=== PATIENT | male | born 1995 | race Two or more races ===

== ENCOUNTER 2024-06-26 17:11 | Inpatient (IN) | payer MEDICAID, OTHER ==
[~2024-06-26] VITALS: Ht 170.2 cm; Wt 64.3 kg
--- NOTE | 2024-06-26 17:51 | DVH ---
CHEST RADIOGRAPH Indication: weak Technique: Single frontal view of the chest was obtained Comparison: None FINDINGS: Lines and Tubes: None Lungs: No focal consolidation. Pleura: No effusion. No pneumothorax. Cardiomediastinal contours: Unremarkable Bones: No acute osseous abnormality. IMPRESSION: 1. No acute cardiopulmonary disease.
--- NOTE | 2024-06-26 18:10 | ED.PDOC ---
History of Present Illness HPI Comments HPI: Poor Historian. History obtained from both the mother and the patient. Onset of symptoms last night. 28-year-old male presents to the emergency department for evaluation of bilat eral feet redness and cold with decreased capillary refill however his pedal pulses are very easily palpable. Denies any pain in his legs. Patient complains of generalized overall body ache/tingling sensation. Patient has some chills. Patient has increased urinary frequency. Denies any other acute symptoms. Patient does not take any medications. Past Medcial History: Cerebral palsy, autism, Past Surgical History: Baclofen pump removal, knee surgery, back surgery, foot bursitis surgery. REVIEW OF SYSTEMS: CONSTITUTIONAL: Denies acute: fever, diaphoresis, HEAD: Denies acute: headache, photophobia Eyes: Denies acute: Double vision, vision loss, eye pain, eye discharge. EARS: Denies acute: tinnitus, hearing loss, ear discharge, ear pain, THROAT: Denies acute: sore throat, swelling, difficulty swallowing , pain with swallowing, change in voice. NECK: Denies acute: neck pain, neck swelling, stiff neck. HEART: Denies acute : chest pain, palpitations, LUNGS: Denies acute: SOB, wheezing, cough, hemoptysis ABDOMEN: Denies acute: abdominal pain, Nausea, Vomiting, diarrhea, melena , hematemesis, hematochezia SKIN: Denies acute: lesions, itchiness. EXTREMITIES: Denies acute: calf pain, numbness, tingling, weakness, denies pain in extremity. Denies acute: Low back pain. Neuro: Denies acute: focal neurological deficit, motor or sensory focal neurological deficit, tremors, seizure like activity, confusion, dizziness, change in mental status, loss of bowel or bladder function, cauda equina like symptoms. : Denies acute: dysuria, hematuria, flank pain, PSYCH: Denies acute: hallucination, suicidal ideation, homicidal ideation. PHYSICAL EXAM: General: no acute distress, awake and alert. Head: normocephalic, atraumatic. Neck: supple, trachea is midline, no swelling. Throat: Normal phonation. Eyes:, no erythema, no purulent discharge, no proptosis, no icterus. Heart: regular rate, regular rhythm, no significant murmur appreciated. Lungs: no apparent respiratory distress, Able to speak in full sentences. No wheezing, no rhonchi, no crackles. No stridors Clear to auscultation bilaterally. Abdomen: non tender to palpation, non distended, soft, no guarding, no rebound, + bowel sounds. Neuro: Awake, Alert, oriented to name, self, situation, follows commands GCS=15. Speech is normal. Skin: no petechia, no purpura, no cyanosis, non-pale, not jaundice. noted some redness of the lower distal extremities. no vesicles, non dermatomal, non elevated, Lower extremities: --no - Pitting edema no deformity, no focal swelling, no calf TTP. Bilateral pedal pulses are palpable. There is noted decreased capillary refills in bilateral feet. They are red in color and cold to touch but no pain. Makes eye contact. moves all four extremities. Face: no apparent facial droop. Wheelchair-bound. Pedal pulses are palpable. Chief Complaint: Rash Time Seen by MD: 17:28 Primary Care Provider: [facility] Reviewed Notes: Nurses Notes, Allergies Allergies: Coded Allergies: NO KNOWN ALLERGIES (Unverified , 06/26/24) Home Meds Reported Medications Quetiapine Fumerate (Seroquel) 50 Mg Tab, 50 MG PO for 30 Days, MG 06/27/24 Baclofen (Baclofen) 10 Mg Tab, 20 MG PO Q8HP PRN for Muscle Spasms for 30 Days, MG 06/27/24 Information Source: Patient, Relative (Mother) Mode of Arrival: Wheelchair Was a procedure done? Was a procedure done?: No Differential Dx Considerations may include: rash, allergic rxn, sepsis, PVD, PAD, occlusion, ischemic limb. viral etiology. DVT. X-Ray, Labs, Meds, VS Vital Signs Date Time Temp Pulse Resp B/P (MAP) Pulse Ox O2 Delivery O2 Flow Rate FiO2 06/27/24 00:00 59 06/27/24 00:00 55 18 121/62 (81) 95 06/27/24 00:00 56 21 126/55 (78) 96 06/26/24 23:00 73 10 127/69 (88) 96 06/26/24 22:45 57 17 95 Room Air* 0 21 06/26/24 22:45 98.5 57 17 124/74 (91) 98 98.5 06/26/24 20:28 78 16 98 Room Air 06/26/24 20:02 98.5 78 16 96/66 (76) 98 98.5 06/26/24 17:22 99.8 66 18 133/88 (103) 99 Lab Test 06/26/24 21:52 06/26/24 17:54 06/26/24 17:21 Range/Units Erythrocyte Sedimentation Rate 2 0-20 mm/hr Prothrombin Time 11.7 9.3-11.8 sec Prothrombin Time INR 1.12 0.9-1.15 Activated Partial Thromboplast Time 31.3 24.5-34.5 SEC B-Type Natriuretic Peptide 1.68 0-100 pg/mL White Blood Count 7.1 4.4-10.8 10^3/uL Red Blood Count 5.08 4.5-5.90 10^6/uL Hemoglobin 16.0 13.5-17.5 g/dL Hematocrit 47.5 41.0-53.0 % Mean Corpuscular Volume 93.5 80.0-100.0 fL Mean Corpuscular Hemoglobin 31.5 28.0-32.0 pg Mean Corpuscular Hemoglobin Concent 33.7 32.0-36.0 g/dL Red Cell Distribution Width 12.2 11.8-14.3 % Platelet Count 292 140-450 10^3/uL Mean Platelet Volume 7.9 6.9-10.8 fL Neutrophils (%) (Auto) 58.8 37.0-80.0 % Lymphocytes (%) (Auto) 30.5 10.0-50.0 % Monocytes (%) (Auto) 9.5 0.0-12.0 % Eosinophils (%) (Auto) 0.8 0.0-7.0 % Basophils (%) (Auto) 0.4 0.0-2.0 % Neutrophils # (Auto) 4.2 1.6-8.6 10 ^3/uL Lymphocytes # (Auto) 2.2 0.4-5.4 10 ^3/uL Monocytes # (Auto) 0.7 0-1.3 10 ^3/uL Eosinophils # (Auto) 0.1 0-0.8 10 ^3/uL Basophils # (Auto) 0 0-0.2 10 ^3/uL Nucleated Red Blood Cells 0.0 % Sodium Level 139 136-145 mmol/L Potassium Level 4.1 3.5-5.1 mmol/L Chloride Level 106 98-107 mmol/L Carbon Dioxide Level 27 20-31 mmol/L Anion Gap 6 5-15 Blood Urea Nitrogen 13 9-23 mg/dL Creatinine 1.02 0.700-1.30 mg/dL Glomerular Filtration Rate Calc 104 >90 mL/min BUN/Creatinine Ratio 12.7 10.0-20.0 Serum Glucose 96 74-106 mg/dL Lactic Acid Level 1.1 0.4-2.0 mmol/L Calcium Level 10.7 H 8.7-10.4 mg/dL Total Bilirubin 0.7 0.2-1.0 mg/dL Aspartate Amino Transferase (AST) 15 13-40 U/L Alanine Aminotransferase (ALT) 21 7-40 U/L Alkaline Phosphatase 66 46-116 U/L Creatine Kinase 188 H 46-171 U/L C-Reactive Protein High Sensitivity 0.02 <1.0 mg/dL Total Protein 7.6 5.7-8.2 g/dL Albumin 5.0 H 3.2-4.8 g/dL Urine Color Yellow Yellow Urine Clarity Clear Clear Urine pH 7.5 5.0-9.0 Urine Specific [place] 1.028 1.001-1.035 Urine Protein 2+ H Negative Urine Ketones Negative Negative Urine Blood Negative Negative /uL Urine Nitrite Negative Negative Urine Bilirubin Negative Negative Urine Urobilinogen 2 H Negative mg/dL Urine Leukocyte Esterase Negative Negative /uL Urine RBC 6 0 - 3 /hpf Urine WBC 2 0 - 3 /hpf Urine Squamous Epithelial Cells None seen <5 /hpf Urine Bacteria Few H None Seen /hpf Urine Mucus Few None Seen Urine Sperm Present None Seen /hpf Urine Glucose Normal Normal mg/dL Urine Opiates Screen Neg NEGATIVE Urine Fentanyl Screen Neg NEGATIVE Urine Barbiturates Screen Neg NEGATIVE Urine Phencyclidine Screen Neg NEGATIVE Urine Amphetamines Screen Neg NEGATIVE Urine Benzodiazepines Screen Neg NEGATIVE Urine Cocaine Screen Neg NEGATIVE Urine Cannabinoids Screen Pos NEGATIVE Microbiology Date/Time Source Procedure Growth Status 06/26/24 17:54 Blood Blood Culture - Final NO GROWTH AFTER 5 DAYS OF INCUBATION. Complete 06/26/24 17:35 Blood Blood Culture - Final NO GROWTH AFTER 5 DAYS OF INCUBATION. Complete 06/26/24 17:21 Voided Urine Urine Culture - Final Enterococcus faecalis Complete [facility] [address] [facility] [address] Ph: [phone] DIAGNOSTIC IMAGING Diagnostic Imaging Report : [id number] Signed PATIENT: SHARON XIE ACCT: [id number] UNIT: [id number] : 1995 LOC: ER ROOM / BED: / AGE / SEX: 28 / M ADM STATUS: REG ER SERVICE 03 ORDERING PHYSICIAN: SARAH CHACKO DO PROCEDURE(s): BLEAD - BiLat Low Ext Art Duplex REASON: cold feet b/l ORDER NUMBER(s): [id number], ACCESSION NUMBER(s): [id number] BILATERAL Lower Extremity Arterial Duplex Date: 06/26/2024 07:13 PM Clinical History: cold feet b/l Comparison: None Technique: Duplex Doppler evaluation including color Doppler and spectral/pulsed waveform analysis of the lower extremity arteries was performed. Finding: RIGHT: Peak systolic velocities are as follows: OBIEE OBIA SOLUTION ARCHITECT 154 cm/s Deep femoral 131 cm/s SFA proximal 99 cm/s SFA mid-portion 97 cm/s SFA distal 75 cm/s Popliteal 73 cm/s Posterior tibial 44 cm/s Dorsalis pedis 29 cm/s The waveforms are triphasic with diastolic flow. LEFT: Peak systolic velocities are as follows: OBIEE OBIA SOLUTION ARCHITECT 125 cm/s Deep femoral 82 cm/s SFA proximal 81 cm/s SFA mid-portion 98 cm/s SFA distal 89 cm/s Popliteal 68 cm/s Posterior tibial 35 cm/s Dorsalis pedis 37 cm/s The waveforms are triphasic with diastolic flow. IMPRESSION: No hemodynamically significant stenosis involving the bilateral lower extremity arteries. REFERENCE VALUES, [facility]) vascular Imaging Lab Criteria: Peak systolic velocity ranges (in cm/sec) are as follows: <150 cm/s - <20 % stenosis 150-200 cm/s - 20-49% stenosis 200-300 cm/s - 50-75% stenosis >300 cm/s -> 75% stenosis ATED BY: ARIN FLORES DO DICTATED DATE/TIME: 06/26/241949 SIGNED BY: ARIN FLORES DO SIGNED DATE/TIME: 06/26/241949 CC: [address] [address] Ph: [phone] DIAGNOSTIC IMAGING Diagnostic Imaging Report : [id number] Signed PATIENT: SHARON XIE ACCT: [id number] UNIT: [id number] : 1995 LOC: ER ROOM / BED: / AGE / SEX: 28 / M ADM STATUS: REG ER SERVICE 28 ORDERING PHYSICIAN: SARAH CHACKO DO PROCEDURE(s): CXRP - CHEST PORTABLE REASON: weak ORDER NUMBER(s): [id number], ACCESSION NUMBER(s): [id number] CHEST RADIOGRAPH Indication: weak Technique: Single frontal view of the chest was obtained Comparison: None FINDINGS: Lines and Tubes: None Lungs: No focal consolidation. Pleura: No effusion. No pneumothorax. Cardiomediastinal contours: Unremarkable Bones: No acute osseous abnormality. IMPRESSION: 1. No acute cardiopulmonary disease. ATED BY: NANCY ALEXANDER Jr., DO DICTATED DATE/TIME: 06/26/241747 SIGNED BY: NANCY ALEXANDER Jr., SIGNED DATE/TIME: 06/26/241747 CC: Time of 1ST Reevaluation: 00:00 Reevaluation 1ST: N/A Patient Education/Counseling: Diagnosis, Treatment Family Education/Counseling: Diagnosis, Treatment Comments Patient presented with the above HPI. bilateral lower extremity erythema workup was initiated. patient was found with the above mentioned diagnosis. the following medications were ordered: ceftriaxone, IV fluids the following tests were ordered: EKG, CXR, BILAT Lower Extremity US, BNP, CMP, CBC, blood culture, C-reactive protein, erythrocyte sedimentary, lactic acid, urinalysis, creatine kinase, prothrombin time, PTPTT Patient ED course and VS have been stabilized. Patient has been reassessed in the ED and remained in a stable condition. Pertinent incidental findings were discussed with the patient and/or family. Patient/family voices understanding and is agreeable with plan. Patient has been observed in the ED adequate length of time to insure improvement/stability. Escalation of care considered: Consideration of escalation to observation or admission Patient was ADMITTED to the medicine team for further evaluation and treatment of their presentation. All the reports of any imaging studies that were ordered by myself were reviewed by myself. Departure 1 Departure Time of Disposition: 23:17 Impression: Primary Impression: UTI (urinary tract infection) Additional Impressions: Rash Cold extremities Disposition: ADMITTED INPATIENT Admit to: Tele Condition: Stable Discharged With: Self, Relative (Mother) Critical Care Note Critical Care Time?: No I personally scribed for SARAH CHACKO DO ([email or web address]) on 06/26/24 at 20:57. Electronically submitted by Alessandro Bee ([email or web address]). I personally scribed for SARAH CHACKO DO ([email or web address]) on 06/26/24 at 22:24. Electronically submitted by Alessandro Bee ([email or web address]). I personally scribed for SARAH CHACKO DO ([email or web address]) on 06/27/24 at 01:41. Electronically submitted by Alessandro Bee ([email or web address]). SARAH CHACKO DO Jun 26, 2024 18:10
[2024-06-26 18:25] LABS: Basophils # (auto) 0 10 ^3/uL (0-0.2); Basophils % (auto) 0.4 % (0.0-2.0); Eosinophils # (auto) 0.1 10 ^3/uL (0-0.8); Eosinophils % (auto) 0.8 % (0.0-7.0); Hematocrit 47.5 % (41.0-53.0); Lymphocytes # (auto) 2.2 10 ^3/uL (0.4-5.4); Lymphocytes % (auto) 30.5 % (10.0-50.0); Mean Corpuscular Hemoglobin 31.5 pg (28.0-32.0); Mean Corpuscular Hgb Conc. 33.7 g/dL (32.0-36.0); Mean Corpuscular Volume 93.5 fL (80.0-100.0); Monocytes # (auto) 0.7 10 ^3/uL (0-1.3); Monocytes % (auto) 9.5 % (0.0-12.0); Neutrophils # (auto) 4.2 10 ^3/uL (1.6-8.6); Neutrophils % (auto) 58.8 % (37.0-80.0); Platelet Count (auto) 292 10^3/uL (140-450); Red Blood Cells 5.08 10^6/uL (4.5-5.90); Red Cell Distribution Width 12.2 % (11.8-14.3); White Blood Cell 7.1 10^3/uL (4.4-10.8)
[2024-06-26 18:31] LABS: Alanine Aminotransferase 21 U/L (7-40); Alkaline Phosphatase 66 U/L (46-116); Anion Gap 6 (5-15); Aspartate Aminotransferase 15 U/L (13-40); BUN/Creatinine Ratio 12.7 (10.0-20.0); Bilirubin, Total 0.7 mg/dL (0.2-1.0); Blood Urea Nitrogen 13 mg/dL (9-23); CRP High Sensitivity 0.02 mg/dL (<1.0); Carbon Dioxide 27 mmol/L (20-31); Chloride 106 mmol/L (98-107); Glucose 96 mg/dL (74-106); Potassium 4.1 mmol/L (3.5-5.1); Sodium 139 mmol/L (136-145); Total Protein 7.6 g/dL (5.7-8.2)
[2024-06-26 18:56] LABS: Calcium 10.7 mg/dL (8.7-10.4); Creatine Kinase IFCC 188 U/L (46-171)
[2024-06-26 19:13] LABS: Urine Bacteria FEW /hpf (None Seen); Urine Blood Negative /uL (Negative); Urine Clarity Clear (Clear); Urine Color Yellow (Yellow); Urine Mucus FEW (None Seen); Urine Protein, UAD 2+ (Negative); Urine Specific Gravity 1.028 (1.001-1.035); Urine Sperm PRESENT /hpf (None Seen); Urine Squamous Epithelial Cell None Seen /hpf (<5); Urine Urobilinogen 2 mg/dL (Negative); Urine WBC 2 /hpf (0 - 3); Urine pH 7.5 (5.0-9.0)
--- NOTE | 2024-06-26 19:53 | DVH ---
BILATERAL Lower Extremity Arterial Duplex Date: 06/26/2024 07:13 PM Clinical History: cold feet b/l Comparison: None Technique: Duplex Doppler evaluation including color Doppler and spectral/pulsed waveform analysis of the lower extremity arteries was performed. Finding: RIGHT: Peak systolic velocities are as follows: DUPLICATING MACHINE OPERATOR 154 cm/s Deep femoral 131 cm/s SFA proximal 99 cm/s SFA mid-portion 97 cm/s SFA distal 75 cm/s Popliteal 73 cm/s Posterior tibial 44 cm/s Dorsalis pedis 29 cm/s The waveforms are triphasic with diastolic flow. LEFT: Peak systolic velocities are as follows: DUPLICATING MACHINE OPERATOR 125 cm/s Deep femoral 82 cm/s SFA proximal 81 cm/s SFA mid-portion 98 cm/s SFA distal 89 cm/s Popliteal 68 cm/s Posterior tibial 35 cm/s Dorsalis pedis 37 cm/s The waveforms are triphasic with diastolic flow. IMPRESSION: No hemodynamically significant stenosis involving the bilateral lower extremity arteries. REFERENCE VALUES, [facility]) vascular Imaging Lab Criteria: Peak systolic velocity ranges (in cm/sec) are as follows: <150 cm/s - <20 % stenosis 150-200 cm/s - 20-49% stenosis 200-300 cm/s - 50-75% stenosis >300 cm/s -> 75% stenosis
[2024-06-26] MEDS: SODIUM CHLORIDE 0.9% 1,000 ML IV ONE (20:21)
[2024-06-26] MEDS: cefTRIAXone 1GM/50ML D5W 50 ML IV ONE (20:29)
[2024-06-26 22:27] LABS: INR 1.12 (0.9-1.15); Partial Thromboplastin Time 31.3 SEC (24.5-34.5); Prothrombin Time 11.7 sec (9.3-11.8)
[2024-06-26 22:45] VITALS: PULSE 57; RESP 17; O2SAT 95
[2024-06-26 22:46] LABS: Erythrocyte Sedimentation Rate 2 mm/hr (0-20)
--- NOTE | 2024-06-27 01:51 | DVHHPRES ---
History of Present Illness Resident Creating Document: [place] [facility] RESIDENT History of Present Illness Is a 28-year-old male with past medical history of cerebral palsy spastic type, autism, who was brought in by his mother due to itchy burning pain in bilateral legs along with a maculopapular rash. According to the patient and his mom at bedside, yesterday on 06/26/2024 he started experiencing back pain, itching burning pain in bilateral lower extremity along with loss of appetite. Denies having any sick contacts, denies any history of travel. Patient remained in [facility] between the ages of 5 and 20, however, mother notes patient is likely up to date on all childhood vaccination. Past Medical History cerebral palsy spastic type, autism Past Surgical History Left knee surgery, baclofen pump removal surgery Smoke: No ALCOHOL: rare Drugs: Marijuana Lives: with Family Review of Systems Constitutional: Yes: Chills, Malaise; No: Fever, Sweats, Weakness, Other Eyes: No: Pain, Vision change, Conjunctivae inflammation, Eyelid inflammation, Other, Redness ENT: Nose discharge; No: Ear pain, Ear discharge, Nose pain, Nose congestion, Mouth pain, Mouth swelling, Throat pain, Throat swelling, Other Respiratory: Cough, Shortness of breath; No: Dry, SOB with excertion, Wheezing, Hemoptysis, Pleuritic Pain, Sputum, Wheezing, Other Cardiovascular: Palpitations; No: Chest Pain, Orthopnea, Paroxysmal Noc. Dyspnea, Edema, Lt Headedness, Other Gastrointestinal: Diarrhea; No: Nausea, Vomiting, Abdominal Pain, Constipation, Melena, Hematochezia, Other Genitourinary: Dysuria, Frequency; No Incontinence, No Hematuria, No Retention, No Other Musculoskeletal: No: other, neck pain, shoulder pain, arm pain, back pain, hand pain, leg pain, foot pain Skin: Rash (Maculopapular type rash on bilateral lower extremities); No: Lesions, Jaundice, Bruising, Other Neurological: No: Weakness, Numbness, Incoordination, Change in speech, Confusion, Seizures, Other Allergies: Coded Allergies: NO KNOWN ALLERGIES (Unverified , 06/26/24) Medications Current Medications Medications Dose Ordered Sig/Jam Route Start Time Stop Time Status Last Admin Dose Admin Ceftriaxone Sodium 50 ml @ 100 mls/hr DAILY@09 IV 06/27/24 09:00 UNV Exam Vital Signs Vital Signs Date Time Temp Pulse Resp B/P (MAP) Pulse Ox O2 Delivery O2 Flow Rate FiO2 06/27/24 00:00 59 06/27/24 00:00 18 121/62 (81) 95 06/26/24 22:45 Room Air* 0 21 06/26/24 22:45 98.5 98.5 General Appearance: Alert, Oriented X3, No acute distress HEENT: Atraumatic, PERRLA, EOMI, Mucous membr. moist/pink Respiratory: Clear to auscultation, Normal air movement Cardiovascular: Regular rate, Normal S1, Normal S2, No murmurs Abdominal: Normal bowel sounds, Soft, No tenderness Extremities: No edema, Normal pulses, Other (Bilateral lower extremity rash, erythema) Skin: No significant lesion Neuro: Normal speech, Normal tone (Increased tone in bilateral lower extremities) Psych/Mental Status: Mood NL Labs/Xrays Labs Test 06/26/24 21:52 06/26/24 17:54 06/26/24 17:21 Range/Units Erythrocyte Sedimentation Rate 2 0-20 mm/hr Prothrombin Time 11.7 9.3-11.8 sec Prothrombin Time INR 1.12 0.9-1.15 Activated Partial Thromboplast Time 31.3 24.5-34.5 SEC B-Type Natriuretic Peptide 1.68 0-100 pg/mL White Blood Count 7.1 4.4-10.8 10^3/uL Red Blood Count 5.08 4.5-5.90 10^6/uL Hemoglobin 16.0 13.5-17.5 g/dL Hematocrit 47.5 41.0-53.0 % Mean Corpuscular Volume 93.5 80.0-100.0 fL Mean Corpuscular Hemoglobin 31.5 28.0-32.0 pg Mean Corpuscular Hemoglobin Concent 33.7 32.0-36.0 g/dL Red Cell Distribution Width 12.2 11.8-14.3 % Platelet Count 292 140-450 10^3/uL Mean Platelet Volume 7.9 6.9-10.8 fL Neutrophils (%) (Auto) 58.8 37.0-80.0 % Lymphocytes (%) (Auto) 30.5 10.0-50.0 % Monocytes (%) (Auto) 9.5 0.0-12.0 % Eosinophils (%) (Auto) 0.8 0.0-7.0 % Basophils (%) (Auto) 0.4 0.0-2.0 % Neutrophils # (Auto) 4.2 1.6-8.6 10 ^3/uL Lymphocytes # (Auto) 2.2 0.4-5.4 10 ^3/uL Monocytes # (Auto) 0.7 0-1.3 10 ^3/uL Eosinophils # (Auto) 0.1 0-0.8 10 ^3/uL Basophils # (Auto) 0 0-0.2 10 ^3/uL Nucleated Red Blood Cells 0.0 % Sodium Level 139 136-145 mmol/L Potassium Level 4.1 3.5-5.1 mmol/L Chloride Level 106 98-107 mmol/L Carbon Dioxide Level 27 20-31 mmol/L Anion Gap 6 5-15 Blood Urea Nitrogen 13 9-23 mg/dL Creatinine 1.02 0.700-1.30 mg/dL Glomerular Filtration Rate Calc 104 >90 mL/min BUN/Creatinine Ratio 12.7 10.0-20.0 Serum Glucose 96 74-106 mg/dL Lactic Acid Level 1.1 0.4-2.0 mmol/L Calcium Level 10.7 H 8.7-10.4 mg/dL Total Bilirubin 0.7 0.2-1.0 mg/dL Aspartate Amino Transferase (AST) 15 13-40 U/L Alanine Aminotransferase (ALT) 21 7-40 U/L Alkaline Phosphatase 66 46-116 U/L Creatine Kinase 188 H 46-171 U/L C-Reactive Protein High Sensitivity 0.02 <1.0 mg/dL Total Protein 7.6 5.7-8.2 g/dL Albumin 5.0 H 3.2-4.8 g/dL Urine Color Yellow Yellow Urine Clarity Clear Clear Urine pH 7.5 5.0-9.0 Urine Specific [place] 1.028 1.001-1.035 Urine Protein 2+ H Negative Urine Ketones Negative Negative Urine Blood Negative Negative /uL Urine Nitrite Negative Negative Urine Bilirubin Negative Negative Urine Urobilinogen 2 H Negative mg/dL Urine Leukocyte Esterase Negative Negative /uL Urine RBC 6 0 - 3 /hpf Urine WBC 2 0 - 3 /hpf Urine Squamous Epithelial Cells None seen <5 /hpf Urine Bacteria Few H None Seen /hpf Urine Mucus Few None Seen Urine Sperm Present None Seen /hpf Urine Glucose Normal Normal mg/dL Assessment/Plan Assessment/Plan Acute complicated UTI Possible cellulitis of the lower extremities vs allergic rash - lower extremity arterial Doppler: No hemodynamically significant stenosis involving the bilateral lower extremity arteries - IV ceftriaxone - IV NS 1 L bolus - ordered urine culture History of cerebral palsy: Muscle spasticity - baclofen 10 mg p.o. once DVT prophylaxis: SCD Goals of care: Full code, discussed for >16 minutes on 06/27/2024 Plan discussed with patient Plan discussed with Dr. Kearney Plan discussed with: Patient, Other (Mother, RN) My Orders Orders - [place] [facility] RESIDENT Procedure Category Date Status Time Admit ADMIT 06/27/24 Transmitted 01:48 Notify Md Of Changes AWAIS 06/27/24 In Process From Base 01:48 Covid19 Antigen Kae LAB 06/27/24 Transmitted Rapid Influenza A&B LAB 06/27/24 Transmitted 01:48 Insert Cheung Catheter AWAIS 06/27/24 In Process 01:48 Urine Bacterial GUNNAR 06/27/24 Transmitted Culture 01:48 Ceftriaxone 1gm/50ml PHA 06/27/24 Logged D5w (Rocephin) 09:00 Ceftriaxone 1gm/50ml PHA 06/27/24 Logged D5w (Rocephin) 02:00 Baclofen Tablet PHA 06/27/24 Transmitted (Liorisal Tablet) 02:00 Date of Service: Jun 27, 2024 Billing Provider: GABBIE KEARNEY MD Common Visit Codes: [id number] INP/OBS CARE (HIGH) [place] RES[facility] Jun 27, 2024 01:51 GABBIE KEARNEY MD Jun 27, 2024 17:51
[2024-06-27] MEDS ORDERED: cefTRIAXone 1GM/50ML D5W 50 ML IV ONE (02:00)
[2024-06-27] MEDS: BACLOFEN 10 MG TAB PO ONE (02:11)
[2024-06-27 03:19] LABS: COVID19 ANTIGEN SOFIA FIA NEGATIVE (NEGATIVE); Rapid Influenza A Negative (Negative); Rapid Influenza B Negative (Negative)
[2024-06-27 03:20] LABS: Amphetamine Screen, Urine Neg (NEGATIVE); Barbiturate Scree,Urine Neg (NEGATIVE); Benzodiazephine Screen, Urine Neg (NEGATIVE); Cocaine Screen, Urine Neg (NEGATIVE)
[2024-06-27 03:21] LABS: Cannabinoid Screen, Urine Pos (NEGATIVE); Opiate Scree,Urine Neg (NEGATIVE); Phencyclidine Screen, Urine Neg (NEGATIVE)
[2024-06-27] MEDS: cefTRIAXone 1GM/50ML D5W 50 ML IV SCH (08:09)
[2024-06-27] MEDS: SODIUM CHLORIDE 0.9% 1,000 ML IV SCH (09:22)
[2024-06-27] MEDS ORDERED: ONDANSETRON HCL 4 MG/2 ML VIAL IV PRN (11:15)
[2024-06-27] MEDS ORDERED: ACETAMINOPHEN 325 MG TAB PO PRN (11:15)
[2024-06-27 15:27] VITALS: RESP 16
[2024-06-27] MEDS ORDERED: BACL10TA PO (16:05)
[2024-06-27] MEDS ORDERED: QUET50TA PO (16:08)
[2024-06-27 17:00] VITALS: BP 147/78; PULSE 69; RESP 18; TEMP 97; O2SAT 96
[2024-06-27 20:00] VITALS: PULSE 67; RESP 18; O2SAT 99
[2024-06-27 21:00] VITALS: BP 154/67; PULSE 73; RESP 18; TEMP 97.6; O2SAT 99
[2024-06-28 01:00] VITALS: BP 138/71; PULSE 67; RESP 18; TEMP 97.6; O2SAT 99
[2024-06-28] MEDS: diphenhdrAMINE HCL 25 MG CAP PO PRN (01:02)
[2024-06-28 05:00] VITALS: BP 113/65; PULSE 93; RESP 19; TEMP 97.5; O2SAT 100
[2024-06-28 05:48] LABS: Basophils # (auto) 0 10 ^3/uL (0-0.2); Basophils % (auto) 0.6 % (0.0-2.0); Eosinophils # (auto) 0.1 10 ^3/uL (0-0.8); Eosinophils % (auto) 1.9 % (0.0-7.0); Hematocrit 47.2 % (41.0-53.0); Hemoglobin 16.1 g/dL (13.5-17.5); Lymphocytes # (auto) 2.6 10 ^3/uL (0.4-5.4); Lymphocytes % (auto) 36.9 % (10.0-50.0); Mean Corpuscular Hemoglobin 32.1 pg (28.0-32.0); Mean Corpuscular Hgb Conc. 34.2 g/dL (32.0-36.0); Mean Corpuscular Volume 93.8 fL (80.0-100.0); Monocytes # (auto) 0.8 10 ^3/uL (0-1.3); Monocytes % (auto) 10.8 % (0.0-12.0); Neutrophils # (auto) 3.5 10 ^3/uL (1.6-8.6); Neutrophils % (auto) 49.8 % (37.0-80.0); Platelet Count (auto) 266 10^3/uL (140-450); Red Blood Cells 5.03 10^6/uL (4.5-5.90); Red Cell Distribution Width 12.4 % (11.8-14.3)
[2024-06-28 05:56] LABS: Alanine Aminotransferase 17 U/L (7-40); Albumin 4.6 g/dL (3.2-4.8); Alkaline Phosphatase 64 U/L (46-116); Anion Gap 5 (5-15); BUN/Creatinine Ratio 8.7 (10.0-20.0); Calcium 10.2 mg/dL (8.7-10.4); Carbon Dioxide 30 mmol/L (20-31); Chloride 104 mmol/L (98-107); Glucose 95 mg/dL (74-106); Magnesium 2.1 mg/dL (1.6-2.6); Sodium 139 mmol/L (136-145); Total Protein 7.5 g/dL (5.7-8.2)
[2024-06-28 05:57] LABS: Aspartate Aminotransferase 10 U/L (13-40); Bilirubin, Total 0.7 mg/dL (0.2-1.0); Blood Urea Nitrogen 9 mg/dL (9-23)
[2024-06-28 08:00] VITALS: PULSE 70; RESP 16; O2SAT 95
[2024-06-28 08:30] VITALS: BP 101/72; PULSE 70; RESP 16; TEMP 97.8; O2SAT 95
--- NOTE | 2024-06-28 09:54 | DVHDS2 ---
Discharge Summary Date of Admission Jun 27, 2024 at 01:48 Date of Discharge: Jun 28, 2024 Labs/Diagnostic Data: Laboratory Results Test 06/28/24 05:18 06/27/24 02:15 06/26/24 21:52 06/26/24 17:54 White Blood Count 7.0 10^3/uL (4.4-10.8) Red Blood Count 5.03 10^6/uL (4.5-5.90) Hemoglobin 16.1 g/dL (13.5-17.5) Hematocrit 47.2 % (41.0-53.0) Mean Corpuscular Volume 93.8 fL (80.0-100.0) Mean Corpuscular Hemoglobin 32.1 pg (28.0-32.0) Mean Corpuscular Hemoglobin Concent 34.2 g/dL (32.0-36.0) Red Cell Distribution Width 12.4 % (11.8-14.3) Platelet Count 266 10^3/uL (140-450) Mean Platelet Volume 7.7 fL (6.9-10.8) Neutrophils (%) (Auto) 49.8 % (37.0-80.0) Lymphocytes (%) (Auto) 36.9 % (10.0-50.0) Monocytes (%) (Auto) 10.8 % (0.0-12.0) Eosinophils (%) (Auto) 1.9 % (0.0-7.0) Basophils (%) (Auto) 0.6 % (0.0-2.0) Neutrophils # (Auto) 3.5 10 ^3/uL (1.6-8.6) Lymphocytes # (Auto) 2.6 10 ^3/uL (0.4-5.4) Monocytes # (Auto) 0.8 10 ^3/uL (0-1.3) Eosinophils # (Auto) 0.1 10 ^3/uL (0-0.8) Basophils # (Auto) 0 10 ^3/uL (0-0.2) Nucleated Red Blood Cells 0.0 % Sodium Level 139 mmol/L (136-145) Potassium Level 4.0 mmol/L (3.5-5.1) Chloride Level 104 mmol/L (98-107) Carbon Dioxide Level 30 mmol/L (20-31) Anion Gap 5 (5-15) Blood Urea Nitrogen 9 mg/dL (9-23) Creatinine 1.04 mg/dL (0.700-1.30) Glomerular Filtration Rate Calc 102 mL/min (>90) BUN/Creatinine Ratio 8.7 (10.0-20.0) Serum Glucose 95 mg/dL (74-106) Calcium Level 10.2 mg/dL (8.7-10.4) Magnesium Level 2.1 mg/dL (1.6-2.6) Total Bilirubin 0.7 mg/dL (0.2-1.0) Aspartate Amino Transferase (AST) 10 U/L (13-40) Alanine Aminotransferase (ALT) 17 U/L (7-40) Alkaline Phosphatase 64 U/L (46-116) Total Protein 7.5 g/dL (5.7-8.2) Albumin 4.6 g/dL (3.2-4.8) Influenza Type A Antigen Negative (Negative) Influenza Type B Antigen Negative (Negative) SARS-CoV-2 Antigen (Rapid) Negative (NEGATIVE) Erythrocyte Sedimentation Rate 2 mm/hr (0-20) Prothrombin Time 11.7 sec (9.3-11.8) Prothrombin Time INR 1.12 (0.9-1.15) Activated Partial Thromboplast Time 31.3 SEC (24.5-34.5) B-Type Natriuretic Peptide 1.68 pg/mL (0-100) Lactic Acid Level 1.1 mmol/L (0.4-2.0) Creatine Kinase 188 U/L (46-171) C-Reactive Protein High Sensitivity 0.02 mg/dL (<1.0) Test 06/26/24 17:21 Urine Color Yellow (Yellow) Urine Clarity Clear (Clear) Urine pH 7.5 (5.0-9.0) Urine Specific [place] 1.028 (1.001-1.035) Urine Protein 2+ (Negative) Urine Ketones Negative (Negative) Urine Blood Negative /uL (Negative) Urine Nitrite Negative (Negative) Urine Bilirubin Negative (Negative) Urine Urobilinogen 2 mg/dL (Negative) Urine Leukocyte Esterase Negative /uL (Negative) Urine RBC 6 /hpf (0 - 3) Urine WBC 2 /hpf (0 - 3) Urine Squamous Epithelial Cells None seen /hpf (<5) Urine Bacteria Few /hpf (None Seen) Urine Mucus Few (None Seen) Urine Sperm Present /hpf (None Seen) Urine Glucose Normal mg/dL (Normal) Urine Opiates Screen Neg (NEGATIVE) Urine Fentanyl Screen Neg (NEGATIVE) Urine Barbiturates Screen Neg (NEGATIVE) Urine Phencyclidine Screen Neg (NEGATIVE) Urine Amphetamines Screen Neg (NEGATIVE) Urine Benzodiazepines Screen Neg (NEGATIVE) Urine Cocaine Screen Neg (NEGATIVE) Urine Cannabinoids Screen Pos (NEGATIVE) Other Laboratory Tests 06/28/24 05:18 Brief Hx & Hospital Course: Final diagnoses: Acute allergic reaction Cerebral palsy Hospital course: 28-year-old male who was admitted for an allergic reaction and rash of his bilateral feet and ankle and knees His mother stated that he did not take any new medications or had any unusual foods He was reporting itching. No infection was suspected White count was normal UA showed no UTI Chest x-ray showed no pneumonia He was observed overnight and today the rash has resolved and he is asymptomatic and therefore he will be discharged home to take Benadryl as needed for the itching or rash and follow up with his primary care physician as soon as possible and resume his regular home medications. Condition at Discharge: Stable Final Diagnosis/Problems List Acute allergic reaction Cerebral palsy Discharge Disposition: Home SNF Discharge Will this Physician continue t: No Discharge Instruct/Medications Diet: Regular Activity: No Restrictions, As Tolerated Follow Up/Referral: PCP [facility] Medications: Benadryl OTC prn Discharge Statement: "Patient was advised to return to the ER or call 911 if any headaches, dizziness, shortness of breath, chest pain, abdominal pain, bleeding, fevers, or worsening of medical condition. Patient was counseled about treatment plan, medications, possible side effects, patientverbalized understanding. All questions were answered to the best of my ability. This discharge took greater then 30 minutes in planning, reviewing documentation, counseling the patient, and discussing with other team members." ASSESSMENT ASSESSMENT Assessment Acute allergic reaction Cerebral palsy Date of Service: Jun 28, 2024 Billing Provider: KATHE CASTAÑEDA MD Common Visit Codes: 74892-BUU/OBS DISCH DAY >30min KATHE CASTAÑEDA MD Jun 28, 2024 09:54
[2024-06-28 10:37] VITALS: TEMP 36.6
[2024-06-28] MEDS: HALOPERIDOL LACTATE 5 MG/ML INJ VIAL IM PRN (11:59)
[2024-06-28 12:27] VITALS: BP 138/75; PULSE 81; RESP 16; O2SAT 96
== END 2024-06-28 12:15 | disposition home or self-care (01) | DRG 811 ==
LOC: ER 17:11 → OVERFLOW 06-27 01:48 → EAST 06-27 15:49
PROVIDERS: ADMIT Internal Medicine Geriatric Medicine; ATTEND Internal Medicine Geriatric Medicine
DX: T78.49XA Other allergy, initial encounter (principal); G80.9 Cerebral palsy, unspecified; X58.XXXA Exposure to other specified factors, initial encounter; Z79.899 Other long term (current) drug therapy
CPT/HCPCS: 36415; 71045; 80053; 80307; 81001; 82550; 83605; 83735; 83880; 85025; 85610; 85652; 85730; 86141; 87040; 87086; 87088; 87186; 87426; 87804; 93925; G0378